=== PATIENT | male | born 1980 | race African-American/Black ===

== ENCOUNTER 2017-10-10 19:14 | Emergency (ER) | payer SELFPAY ==
[~2017-10-10] VITALS: Ht 180.3 cm; Wt 122.5 kg
[2017-10-10 20:00] VITALS: BP 138/78
== END 2017-10-10 20:01 | disposition home or self-care (01) ==
LOC: FSED 19:14
DX: K62.5 Hemorrhage of anus and rectum (principal); K64.4 Residual hemorrhoidal skin tags; L03.031 Cellulitis of right toe
CPT/HCPCS: 99282

== ENCOUNTER 2019-10-18 13:45 | Emergency (ER) | payer BC ==
[~2019-10-18] VITALS: Ht 180.3 cm; Wt 122.5 kg
--- NOTE | 2019-10-18 14:07 | Emergency Department Note ---
History of Present Illnes History of Present Illness Chief Complaint: General Medicine Complaints History of Present Illness This is a 38 year old male PATIENT IN FROM HOME WITH COMPLAINTS OF TIGHTNESS IN HIS THROAT, AND STATES THAT HE WOKE UP IN THE MIDDLE OF THE NIGHT WITH SHORTNESS OF BREATH. PATIENT ALERT AND ORIENTED, RESP EVEN AND NONLABORED, O2 SATS 99% ON ROOM AIR. Historian: Patient Arrival Mode: Car Onset (how long ago): day(s) (YESTERDAY) Location: THROAT Quality: PAIN/FULLNESS Radiation: Reports non-radiation Severity: moderate Onset quality: gradual Timing of current episode: constant Chronicity: new Context: Denies recent illness Relieving factors: none Exacerbating factors: none Associated symptoms: Reports denies other symptoms; Denies cough, Denies shortness of breath Past Medical/Family History Physician Review I have reviewed the patient's past medical and family history. Any updates have been documented here. Past Medical History Recent Fever: No Clinical Suspicion of Infectio: No New/Unexplained Change in Ment: No Past Medical History: Hypertension Other Medical History: NON COMPLIANT Past Surgical History: None Social History Smoking Cessation: Current every day smoker Counseling Performed: Yes Alcohol Use: Occasional Any Illegal Drug Use: Yes (MARIJUANA) Physically hurt or threatened: No Other Last Tetanus: UNK Any Pre-Existing Lines (PICC,: No Review of Systems Review of Systems Constitutional: Reports no symptoms EENTM: Reports as per HPI, Reports throat pain, Reports throat swelling Cardiovascular: Reports no symptoms Respiratory: Reports no symptoms Gastrointestinal: Reports no symptoms Genitourinary: Reports no symptoms Musculoskeletal: Reports no symptoms Integumentary: Reports no symptoms Neurological: Reports no symptoms Psychological: Reports no symptoms Endocrine: Reports no symptoms Hematological/Lymphatic: Reports no symptoms Physical Exam Related Data Allergies: Coded Allergies: No Known Allergies (Unverified , 12/23/16) Triage Vital Signs Vital Signs Date Time Temp Pulse Resp B/P (MAP) Pulse Ox O2 Delivery O2 Flow Rate FiO2 10/18/19 13:53 98.3 91 20 159/109 99 Room Air Vital signs reviewed: Yes Physical Exam CONSTITUTIONAL Constitutional: Present well-developed, Present well-nourished HENT HENT: Present normocephalic, Present atraumatic, Present other (NO SWELLING OF UVULA OR OROPHARYNX, MILD BILATERAL TONSILLAR SWELLING WITH WHITISH EXUDATE ON RIGHT TONSIL, MILD ERYTHEMA OF POST O/P) HENT L/R: Present left ext ear normal, Present right ext ear normal EYES Eyes: Reports PERRL, Reports conjunctivae normal NECK Neck: Present ROM normal PULMONARY Pulmonary: Present effort normal, Present breath sounds normal CARDIOVASCULAR Cardiovascular: Present regular rhythm, Present heart sounds normal, Present capillary refill normal, Present normal rate GASTROINTESTINAL Abdominal: Present soft, Present nontender, Present bowel sounds normal GENITOURINARY Genitourinary: Present exam deferred SKIN Skin: Present warm, Present dry MUSCULOSKELETAL Musculoskeletal: Present ROM normal NEUROLOGICAL Neurological: Present alert, Present oriented x 3, Present no gross motor or sensory deficits PSYCHOLOGICAL Psychological: Present mood/affect normal, Present judgement normal Assessment & Plan Medical Decision Making MDM STREP Reassessment Reassessment DC HOME WITH AUGMENTIN 875 BID X 10 DAYS, WARM WATER GARGLES, F/U PCP (GIVE S JOSEPH'S NUMBER) Assessment & Plan Final Impression: (1) Acute bacterial pharyngitis Depart Disposition: HOME, SELF-CARE Last Vital Signs Date Time Temp Pulse Resp B/P (MAP) Pulse Ox O2 Delivery O2 Flow Rate FiO2 10/18/19 13:53 98.3 91 20 159/109 99 Room Air JASON CUEVA MD Oct 18, 2019 14:07
== END 2019-10-18 14:16 | disposition home or self-care (01) ==
LOC: ER 14:16
DX: J02.8 Acute pharyngitis due to other specified organisms (principal); R06.02 Shortness of breath; I10 Essential (primary) hypertension; F17.210 Nicotine dependence, cigarettes, uncomplicated
CPT/HCPCS: 99283

== ENCOUNTER 2020-04-28 12:18 | Emergency (ER) | payer BC ==
[~2020-04-28] VITALS: Ht 180.3 cm; Wt 131.5 kg
[2020-04-28] MEDS ORDERED: KETOROLAC TROMETHAMINE 30 MG/ML VIAL IV STA (12:43)
[2020-04-28] MEDS ORDERED: KETOROLAC TROMETHAMINE 30 MG/ML VIAL ONE (12:51)
[2020-04-28] MEDS ORDERED: PREDNISONE20 MG PO (13:38)
[2020-04-28] MEDS ORDERED: CYCLOBENZAPRINE5 MG PO (13:38)
== END 2020-04-28 14:11 | disposition home or self-care (01) ==
LOC: FSED 12:24
DX: S29.011A Strain of muscle and tendon of front wall of thorax, initial encounter (principal); I10 Essential (primary) hypertension
CPT/HCPCS: 71046; 80048; 80076; 82553; 84484; 85025; 85379; 93005; 99284; J1885

== ENCOUNTER 2020-07-12 10:42 | Emergency (ER) | payer BC ==
[~2020-07-12] VITALS: Ht 182.9 cm; Wt 131.5 kg
[~2020-07-12 10:42] MED LIST: CYCLOBENZAPRINE5 MG PO; PREDNISONE20 MG PO
[2020-07-12] MEDS: KETOROLAC TROMETHAMINE 60 MG/2 ML VIAL IM NR (11:12)
[2020-07-12] MEDS ORDERED: KETOROLAC TROMETHAMINE 30 MG/ML VIAL ONE (11:17)
== END 2020-07-12 12:10 | disposition home or self-care (01) ==
LOC: FSED 11:08
DX: M25.551 Pain in right hip (principal); S76.811A Strain of other specified muscles, fascia and tendons at thigh level, right thigh, initial encounter; I10 Essential (primary) hypertension
CPT/HCPCS: 73502; 99283; J1885

== ENCOUNTER 2021-10-11 18:29 | Emergency (ER) | payer BC ==
[~2021-10-11] VITALS: Ht 180.3 cm; Wt 95.7 kg
[2021-10-11] MEDS ORDERED: IBUPROFEN200 MG PO ×2 (18:57→19:02)
[2021-10-11] MEDS ORDERED: CEFDINIR300 MG PO ×2 (18:57→19:02)
[2021-10-11] MEDS ORDERED: ACETAMINOPHEN500 MG PO ×2 (18:57→19:02)
[2021-10-12] MEDS ORDERED: AZITHROMYCIN250 MG PO (03:49)
[2021-10-12] MEDS ORDERED: PREDNISONE20 MG PO (03:49)
[2021-10-12] MEDS ORDERED: ULTRAM 50MG50 MG PO (04:04)
== END 2021-10-11 19:09 | disposition home or self-care (01) ==
LOC: FSED 18:50
DX: R51.9 Headache, unspecified (principal); J02.9 Acute pharyngitis, unspecified; Z28.310 Unvaccinated for COVID-19; Z20.822 Contact with and (suspected) exposure to COVID-19; H92.01 Otalgia, right ear
CPT/HCPCS: 0223U; 36415; 83518; 99282

== ENCOUNTER 2021-10-12 03:20 | Emergency (ER) | payer BC ==
[~2021-10-12] VITALS: Ht 180.3 cm; Wt 95.7 kg
[~2021-10-12 03:20] MED LIST changes: +ACETAMINOPHEN500 MG PO; +CEFDINIR300 MG PO; +IBUPROFEN200 MG PO
[2021-10-12] MEDS ORDERED: AZITHROMYCIN250 MG PO (03:49)
[2021-10-12] MEDS ORDERED: PREDNISONE20 MG PO (03:49)
[2021-10-12] MEDS ORDERED: ULTRAM 50MG50 MG PO (04:04)
== END 2021-10-12 03:57 | disposition home or self-care (01) ==
LOC: ER 03:24
DX: H66.91 Otitis media, unspecified, right ear (principal); J02.9 Acute pharyngitis, unspecified
CPT/HCPCS: 99282

== ENCOUNTER 2024-05-01 11:45 | Emergency (ER) | payer SELFPAY ==
[~2024-05-01] VITALS: Ht 180.3 cm; Wt 127.0 kg
[~2024-05-01 11:45] MED LIST changes: +AZITHROMYCIN250 MG PO; +OLMESARTAN-HCT1 EACH PO; +PREDNISONE50 MG PO; +TYLENOL325 MG PO; +ULTRAM 50MG50 MG PO; +ZANAFLEX4 MG PO
[2024-05-01] MEDS: TETRACAINE HCL 0.5% OPTH SOLN 4 ML BTL OP ONE (12:44)
[2024-05-01] MEDS: FLUORESCEIN SOD(OPTH) 1 MG STRP OP ONE (12:44)
[2024-05-01] MEDS ORDERED: POLYMYXIN B-TMP10 ML TOP (12:46)
[2024-05-01 13:31] VITALS: PULSE 86; RESP 18; TEMP 98.1; O2SAT 99
== END 2024-05-01 13:31 | disposition home or self-care (01) ==
LOC: FSED 12:07
DX: T15.91XA Foreign body on external eye, part unspecified, right eye, initial encounter (principal); I10 Essential (primary) hypertension
CPT/HCPCS: 99283

== ENCOUNTER 2024-06-21 15:30 | Emergency (ER) | payer SELFPAY ==
[~2024-06-21 15:30] MED LIST changes: +POLYMYXIN B-TMP10 ML TOP
[2024-06-21 15:35] VITALS: PULSE 73; RESP 20; TEMP 97.5
[2024-06-21] MEDS: IBUPROFEN 400 MG TAB PO ONE (16:04)
[2024-06-21 18:21] VITALS: BP 178/110; PULSE 84; RESP 18; TEMP 97.7; O2SAT 100
== END 2024-06-21 18:14 | disposition home or self-care (01) ==
LOC: FSED 15:34
DX: N50.812 Left testicular pain (principal); N43.3 Hydrocele, unspecified; N50.3 Cyst of epididymis; I10 Essential (primary) hypertension
CPT/HCPCS: 76870; 81003; 99284

== ENCOUNTER 2024-11-08 12:20 | Emergency (ER) | payer SELFPAY ==
[~2024-11-08] VITALS: Ht 182.9 cm; Wt 127.2 kg
[2024-11-08 12:25] VITALS: PULSE 74; RESP 22; TEMP 98.6; O2SAT 96
[2024-11-08] MEDS ORDERED: BENICAR20 MG PO (12:44)
[2024-11-08] MEDS ORDERED: VALTREX1000 MG PO (12:44)
== END 2024-11-08 12:52 | disposition home or self-care (01) ==
LOC: FSED 12:43
DX: I10 Essential (primary) hypertension (principal); B02.9 Zoster without complications
CPT/HCPCS: 99284